=== PATIENT | female | born 1945 | race Caucasian/White ===

== ENCOUNTER 2017-02-28 14:03 | Day surgery (SDC) | payer MEDICARE, OTHER ==
[~2017-02-28] VITALS: Ht 152.4 cm; Wt 59.0 kg
[~2017-02-28 14:03] MED LIST: 0.9% Sodium Chloride 1,000 ML IV SCH; ASPI81TA3 PO; CALC650T7 PO; CHOL200047 PO; PRAV80TA2 PO; Sodium Chloride LOK Flush 10 mL Syringe IV PRN; UBIQ75CA PO; fentaNYL-PF 50 mCg/mL 2 mL Inj IVPUSH PRN
[2017-02-28 15:24] VITALS: BP 145/85; PULSE 78; RESP 12; O2SAT 98
[2017-02-28] MEDS ORDERED: ENZYCORE PO (15:31)
[2017-02-28] MEDS ORDERED: VITA1TAB22 PO (15:31)
[2017-02-28 17:11] VITALS: BP 121/65; PULSE 65; RESP 14; O2SAT 98
[2017-02-28 17:18] VITALS: BP 125/71; PULSE 69; RESP 14; O2SAT 97
--- NOTE | 2017-02-28 20:33 | ENDO ---
[address] [address] ENDOSCOPY PROCEDURE PATIENT: VIOLETTE HOOD : 1945 MR#: [id number] ADMIT: 02/28/2017 JOB ID: [id number] PROCEDURE: Colonoscopy. INDICATION: Screening. Patient's ASA classification is two. Mallampati score is two. MEDICATIONS: Versed 5 mg, Fentanyl 100 mcg. INSTRUMENT USED: PCF-H180AL PREPARATION QUALITY: Fair. PROCEDURE DETAILS: After informed consent was obtained, the patient was brought into the GI suite, where she was placed on oxygen via nasal cannula and monitored with continuous pulse oximeter, telemetry, and blood pressure monitoring. A time-out was performed, then she was placed in the left lateral decubitus position and medications were administered for sedation. Digital rectal exam was performed, which was unremarkable. The colonoscope was then inserted into the rectum and advanced under direct visualization to the cecum, which was identified by the presence of the ileocecal valve and appendiceal orifice. The procedure was moderately difficult, as the patient's colon was quite redundant. Once the cecum was reached, the colonoscope was withdrawn back into the rectum as the mucosa and lumen were examined. In the rectum, retroflexion was performed. Following retroflexion, the remaining air in the rectum was suctioned and the procedure was completed. FINDINGS: Normal exam from rectum to cecum. IMPRESSION: Normal colonoscopy. RECOMMENDATIONS: Repeat colonoscopy in 10 years, sooner if symptoms should dictate. COMPLICATIONS: None. ESTIMATED BLOOD LOSS: Zero.
== END 2017-02-28 23:59 | disposition home or self-care (01) ==
LOC: END 14:03
PROVIDERS: ATTEND Internal Medicine Gastroenterology
DX: Z12.11 Encounter for screening for malignant neoplasm of colon (principal); K21.9 Gastro-esophageal reflux disease without esophagitis; E78.5 Hyperlipidemia, unspecified; M85.80 Other specified disorders of bone density and structure, unspecified site; Z79.82 Long term (current) use of aspirin